=== PATIENT | female | born 1975 | race Caucasian/White ===

== ENCOUNTER 2019-11-30 13:12 | Emergency (ER) | payer OTHER ==
--- OUTSIDE RECORDS SUMMARY | 2019-11-30 13:18 | XMS REPORT | Continuity of Care Document ---
:1975 External Reference #:[id number] Author Name Guadalupe Caldera M.D. Address [address] [place] [address] Care Team Providers Name Role Phone Guadalupe Caldera - Family Medicine Care Team Information Senior Agricultural Assistant Maggie Guerra MD - Surgery Care Team Information Senior Agricultural Assistant [phone] rabble furnace tender - Obstetrics & Gynecology Care Team Information Senior Agricultural Assistant [phone] Problems Active Problems Provider Date Allergic rhinitis Guadalupe Caldera M.D. Onset: 09/23/2012 Vitamin D deficiency Guadalupe Caldera M.D. Onset: 08/11/2015 Overweight Guadalupe Caldera M.D. Onset: 07/10/2015 Mild intermittent asthma, uncomplicated Guadalupe Caldera M.D. Onset: 2014 Acute maxillary sinusitis Danny Garber M.D. Onset: 08/05/2014 Social History Type Date Description Comments Sex Unknown Tobacco Use Start: Unknown End: Former Cigarette Smoker 6 years. Stopped Unknown 1/2 Pack Daily 2004. ETOH Use Social Alcohol couple glasses wine weekly. Tobacco Use Start: Unknown End: Patient is a former smoker Unknown Smoking Status Reviewed: 04/12/19 Patient is a former smoker Allergies, Adverse Reactions, Alerts Active Allergies Reaction Severity Comments Date Mold 07/27/2010 Mildew 07/27/2010 Cats 07/27/2010 Dogs 07/27/2010 Ragweed 07/27/2010 Erythromycin 07/27/2010 Dog Dander 07/27/2010 Cat Dander 07/27/2010 Medications Active Medications SIG Qnty Indications Ordering Date Provider Bupropion 1 by mouth once 60tabs F34.1 Guadalupe Kern 09/03/2019 Hydrochloride ER (SR) a day for 1 Sade Caldera week. then twice 100mg Tablets ER 12HR daily thereafter, the second pill at noon. Fluticasone Inhale 1 puff By 60units J45.20 Guadalupe Kern 05/01/2019 Propionate/Salmeterol Mouth Two Times Sade Caldera Diskus Daily 250-50mcg/Dose Aerosol Montelukast Sodium take 1 tablet by 30tabs J45.998 Lissa Emmie 10/15/2018 10mg mouth every day Blanca, CREDENTIALING ANALYST Tablets Ventolin HFA inhale 2 puffs 18units J45.998 Lissa Emmie 05/09/2013 108(90Base) by mouth every 4 Blanca, CREDENTIALING ANALYST mcg/Act Aerosol hours as needed Mirena replaced 2017 Unknown 20mcg/24HR IUD Immunizations CPT Code Status Date Vaccine Lot # [id number] Given 07/13/2019 Influenza Vac, Quadriv[place], [place] [id number] Given 06/24/2018 Influenza Vac, Quad[place] [id number] Given 06/22/2017 Influenza Vac, Quadriv[place] [id number] Given 06/15/2016 Influenza Vac, Quadriv[place] [id number] Given 07/10/2015 Influenza Vac, Quadrivalent, Slit Virus, Im [id number] Given 01/31/2015 Pneumococcal Immunization [id number] Given 06/28/2013 DO Not Use Split Influenza Virus Vaccine 88820 Given 08/02/2012 DO Not Use Split Influenza Virus Vaccine Vital Signs Date Vital Result Comment 10/24/2019 8:43am BP Systolic 112 mmHg BP Diastolic 74 mmHg Heart Rate 72 /min Body Temperature 97.7 F Respiratory Rate 20 /min Height 65 inches 5'5" Weight 232.25 lb shoes on BMI (Body Mass Index) 38.6 kg/m2 09/03/2019 4:22pm BP Systolic 98 mmHg BP Diastolic 64 mmHg Heart Rate 76 /min Body Temperature 97.7 F Respiratory Rate 12 /min Height 65 inches 5'5" Weight 239.00 lb BMI (Body Mass Index) 39.8 kg/m2 Results Description No Information Available Procedures Date Code Description Status 01/15/2019 31327901 Mammogram Completed Medical Devices Description No Information Available Encounters Type Date Location Provider Dx Diagnosis Office Visit 09/03/2019 [facility] Office Guadalupe Kern F34.1 Dysthymic disorder 3:40p Sade Caldera E66.3 Overweight Assessments Date Code Description Provider 10/24/2019 F34.1 Dysthymic disorder Guadalupe Caldera M.D. 09/03/2019 F34.1 Dysthymic disorder Guadalupe Caldera M.D. 09/03/2019 E66.3 Overweight Guadalupe Caldera M.D. Plan of Treatment Future Appointment(s):01/28/2020 12:00 pm - Guadalupe Caldera M.D. at [facility] [id number]/24/2019 - Guadalupe Caldera M.D.F34.1 Dysthymic disorderComments:doing much better with the bupropion.if you feel a drop off in the future, you can take both pills in the morning.Follow up:3 months.AllComments:Medication Management Patient Understands medications she ' s taking? Yes No Are there Barriers to Adherence? Yes No Has the patient been asked about herbal supplements and therapies, and OTC meds? Yes No Care Plan1. Patient has been queried about patient's goals/ preferences and functional/lifestyle goals at relevant visits. If relevant, describe: na2. Treatment goals as explained to the patient: above3. Are there barriers to meeting treatment goals? Yes No If Yes, please describe:4. Self-Management goals as described to the patient: Yes No Functional Status Description No Information Available Mental Status Description No Information Available Referrals Description No Information Available
[2019-11-30 13:32] VITALS: BP 125/69
--- NOTE | 2019-11-30 13:41 | UC ---
Respiratory Complaint HPI - HPI Summary HPI Summary: CHIEF COMPLAINT: Congestion HPI: This is a healthy 44-year-old with a diagnosis of strep throat 4 days ago being treated with amoxicillin. Yesterday began to experience cough, congestion and mild shortness of breath. Medications include amoxicillin albuterol and Flonase. Description of Pain: No chest pain. VITAL SIGNS REVIEWED. Within normal limits unless noted here. Afebrile. NURSES NOTE REVIEWED. "Pt c/o SOB. Pt states was dx with strep throat Monday11/27/19. States was feeling better by Monday but runny nose/ cough started yesterday evening. " - History of Current Complaint Chief Complaint: UCGeneralIllness Stated Complaint: RESP COMPLAINT Time Seen by Provider: 11/30/19 13:22 Hx Obtained From: Patient ?: No Pain Intensity: 0 - Allergies/Home Medications Allergies/Adverse Reactions: Allergies Allergy/AdvReac Type Severity Reaction Status Date / Time erythromycin base Allergy Vomiting Verified 11/30/19 13:24 Home Medications: Home Medications Montelukast Sodium TAB* [Singulair TAB*] 10 mg PO DAILY 04/15/13 [History Confirmed 11/30/19] Albuterol HFA INHALER* [Ventolin HFA Inhaler*] 1 puff INH Q4H PRN 11/30/19 [ History Confirmed 11/30/19] Amoxicillin PO (*) [Amoxicillin 500 MG CAP*] 500 mg PO BID 11/30/19 [History Confirmed 11/30/19] Fluticasone NASAL SPRAY 50MCG* [Flonase NASAL SPRAY 50MCG*] 2 spray BOTH NARES DAILY 11/30/19 [History Confirmed 11/30/19] Fluticasone-Salmeterol 250-50* [Advair Diskus 250-50*] 1 puff INH DAILY [History Confirmed 11/30/19] Levonorgestrel (Iud) [Mirena IUD] 20 mcg IU DAILY 11/30/19 [History Confirmed ] buPROPion TAB* [Wellbutrin TAB*] 100 mg PO DAILY 11/30/19 [History Confirmed 04/13] PMH/Surg Hx/FS Hx/Imm Hx Previously Healthy: Yes Respiratory History: Asthma - Surgical History Surgical History: Yes Surgery Procedure, Year, and Place: LEEP procedure 2002. tonsillectomy. ear tubes as a child - Family History Known Family History: Positive: Hypertension, Diabetes - Social History Occupation: Employed Part-time Lives: With Family Alcohol Use: Occasionally Substance Use Type: None Smoking Status (MU): Never Smoked Tobacco - Immunization History Most Recent Influenza Vaccination: 07/2012 Most Recent Tetanus Shot: 02/25/2013 Review of Systems All Other Systems Reviewed And Are Negative: Yes Constitutional: Positive: Negative. Negative: Fever ENT: Positive: Sinus Congestion Respiratory: Positive: Shortness Of Breath Cardiovascular: Positive: Negative Gastrointestinal: Positive: Negative Is Patient Immunocompromised?: No Physical Exam - Summary Physical Exam Summary: Pulse ox 97, respiratory rate 16 Appearance: The patient is well-appearing, is in no pain or distress, and is well-nourished. Eyes: Conjunctiva are clear. Pupils are equal and reactive to light and accommodation. Extra ocular muscle movement is intact. ENT: The hearing is grossly normal, the pharynx is normal, and the TMs are normal. There is no muffled or hoarse voice. No stridor. Neck: The neck is supple and there is no lymphadenopathy. Respiratory: The chest is non-tender to palpation and without crepitus. The lungs reveal an extended expiratory phase left longer than right. There are scattered rhonchi and wheezing especially at the bases. Cardiovascular: Heart sounds reveal a regular rate and rhythm. There are no clicks, rubs or murmurs. There are no carotid bruits or thrills. Circulation is grossly intact. Abdomen: The abdomen is soft and nontender. There is no organomegaly. Bowel sounds are present and within normal limits. No point tenderness at McBurneys point. No CVA tenderness. Musculoskeletal: Strength is intact. The patient moves all extremities. Neurological: The patient is alert. Motor and sensory are examination grossly intact. Speech is normal. Psychological: The patient displays age appropriate behavior, and is conversant. GCS=15. Skin: Negative for rashes. reassessment: 14:20: much improved; decreased shortness of breath; easier for her to breathe; decreased time for expiration and fewer wheezes. Triage Information Reviewed: Yes Vital Signs: Initial Vital Signs Temp 98.7 F 11/30/19 13:28 Pulse 88 11/30/19 13:28 Resp 16 11/30/19 13:28 BP 125/69 11/30/19 13:28 Pulse Ox 97 11/30/19 13:28 Vital Signs Reviewed: Yes Respiratory Course/Dx - Course Course Of Treatment: Healthy 44-year-old white female with a history of asthma comes to the urgent care center for mild shortness of breath that began yesterday. 5 days ago she felt poorly with chills body aches and sore throat. 4 days ago she was diagnosed with strep throat and started on amoxicillin. Her throat is much better with decreased pain and decreased discomfort along the muscles of her anterior neck. However, yesterday and today she did feel as if it was slightly hard to breathe. In the urgent care center her temperature was 98.7 and pulse ox was 97. Physical examination was significant for an abnormal respiratory exam that included an extended expiratory phase bilaterally as well as bilateral rhonchi at both bases and significant wheezing left greater than right. A DuoNeb treatment was employed and the patient felt subjectively better. Her lung examination showed improved air flow. My diagnosis is bronchospasm secondary to upper respiratory infection. Patient will use albuterol 2 puffs 3-4 times a day with a spacer. - Differential Dx/Diagnosis Differential Diagnosis/HQI/PQRI: Asthma, Bronchitis, Lower Resp Infection Provider Diagnosis: Bronchospasm Discharge ED - Sign-Out/Discharge Documenting (check all that apply): Patient Departure All imaging exams completed and their final reports reviewed: No Studies - Discharge Plan Condition: Stable Disposition: HOME Patient Education Materials: Bronchospasm (ED) Referrals: Guadalupe Caldera MD [Primary Care Provider] - Additional Instructions: WE DISCUSSED: PLEASE SEEK CARE AT THE EMERGENCY DEPARTMENT IF SYMPTOMS WORSEN OR IF NEW SYMPTOMS DEVELOP. FOLLOW UP WITH YOUR PRIMARY CARE PHYSICIAN IF CONDITION CONTINUES BEYOND 3 DAYS WITHOUT IMPROVEMENT. YOUR DIAGNOSIS IS: Strep throat that is getting better; bronchospasm because of your illness and history of asthma. YOUR PRESCRIPTION RECOMMENDATION IS: spacer plus use your albuterol; 2 puffs, 3- 4 times a day for 2-5 days./ OTHER INSTRUCTIONS: stay away from smoke or other irritants. FOR PAIN AND/OR SLEEP: For pain: Ibuprofen (Motrin and other brand names) 400-600mg PLUS acetaminophen (Tylenol and other brand names) 500mg - 1000mg every 8 hours. Other information: The most important goal is to liquefy all the phlegm and mucus, and get it out of your head and chest. For sore throat, it is important to keep throat moist and protected. Any illness causing cough, congestion, sore throat or sinus discomfort can be helped by doing the following: To clear you head, sinuses and chest of congestion: stand under a warm shower stream to loosen secretions. Use a vaporizor. Stay away from smoke or irritants. Use saline nasal spray or Neti Pot to keep the flow of mucus from your nostrils and sinuses. For sore throat: drink lots of warm fluids. Tea and honey is particularly useful because the honey can coat protect your throat. Gargle with warm water with 1/2 teaspoon of salt per 8 ounces of water. Gargle for a few seconds and spit out. Repeat every three hours. Keep your throat protected with lozenges. Don't let your throat dry out. Use a vaporizor at night. Make sure to check with your pharmacist if you are taking other prescription medication prior to taking any over the counter medications listed here. DECONGESTANTS: helps relieve stuffiness and clears sinuses. Pseudoephedrine ( Sudafed or generic) is effective but you need to ask the pharmacist for it because it may be kept behind the counter. ANTIHISTAMINES: are not helpful in many colds and flus because they can worsen sore throat, dry eyes and mouth and cause drowsiness. Examples are diphenhydramine, doxylamine and chlorpheniramine. They can help dry you out if you are having profuse, clear drainage from the nose or post-nasal drip. EXPECTORANTS: helps thin mucous in the nose and chest, making it easier to clear the fluid out. Expectorants are in most combination cough/cold remedies and should be taken with plenty of water. Guaifenesin is the most common expectorant and it comes in pill or liquid form. Mucinex is an extended release form of guaifenesin. COUGH SUPPRESSANT: reduces the body's cough reflex. Dextromethorphan is in over the counter products, but sometimes narcotics such as codeine or hydrocodone are used to suppress cough. SPECIFIC MEDICATIONS: The following medicines may help: To help with cough: DEXTROMETHORPHAN (Vicks, Robitussin, Nyquil and other brands) To help break up phlegm: GUAIFENESIN (Mucinex, Robitussin, other brands) To help clear congestion in the nose and sinuses: PSEUDOEPHEDRINE (Sudafed, Dimetapp, other brands) To help clear nasal congestion: AFRIN NASAL SPRAY: 2-3 SPRAYS PER NOSTRIL, TWICE A DAY FOR TWO DAYS ONLY. FLONASE: (or other steroid nasal sprays) can help if your running nose is caused by an allergy. It can help relieve congestion. It is used once a day in each nostril. Check the dose with your pharmacist. FOLLOW-UP: re-check in 10 days if you are not improving. Return here or see your caregiver. RE-CHECK SOONER if you have increased pain, temperature, cough, sinus symptoms, or difficulty breathing or swallowing. Go directly to Emergency Department if symptoms are severe. - Billing Disposition and Condition Condition: STABLE Disposition: Home
[2019-11-30] MEDS ORDERED: Albuterol/Ipratropium NEB.SOL* Albuterol 2.5 MG/Ipratropium 0.5 MG 3 ML INH ONE (13:58)
== END 2019-11-30 14:42 | disposition home or self-care (01) ==
LOC: UCEAST 13:12
DX: J45.909 Unspecified asthma, uncomplicated (principal); Z79.51 Long term (current) use of inhaled steroids; Z88.1 Allergy status to other antibiotic agents
CPT/HCPCS: 99211; A9270-GY; G0463